=== PATIENT | female | born 1950 | race Caucasian/White ===

== ENCOUNTER 2016-06-17 18:51 | Emergency (ER) ==
[2016-06-17 18:57] VITALS: BP 125/86; TEMP 98.8; BMI 34.0
[2016-06-17 19:34] LABS: FLU INTERNAL QC INTERNAL QC VALID; RAPID FLU A NEGATIVE (NEGATIVE); RAPID FLU B NEGATIVE (NEGATIVE)
[2016-06-17] MEDS ORDERED: LIDOCAINE 1 % AMP 5 ML (SUTURES) IM STA (19:40)
[2016-06-17] MEDS ORDERED: ROCEPHIN IM STA (19:40)
[2016-06-17] MEDS ORDERED: DECADRON 4 MG/ML SDV IM STA (19:40)
--- NOTE | 2016-06-17 19:43 | ED.PDOC ---
General ED Provider: Dr. KRIS CARDENAS-ER Chief Complaint: Cough Stated Complaint: im coughing and running a fever Time Seen by Physician: 18:55 Mode of Arrival: Walk-In Information Source: Patient Exam Limitations: No limitations Nursing and Triage Documentation Reviewed and Agree: Yes Respiratory Complaint Exam - Respiratory Complaint/Exam Onset/Duration: 2 days Symptoms Are: Still present Timing: Intermittent Initial Severity: Mild Current Severity: Mild Location: Chest Character: Reports: Productive cough Aggravating: Reports: URI Alleviating: Reports: None Associated Signs and Symptoms: Reports: Fever, URI, Nasal congestion. Denies: Rapid breathing, Dyspnea, Chills, Chest pain, Pleuritic chest pain, Wheezing, Hemoptysis, Dizziness, Calf pain, Calf swelling, Edema, Hoarseness, Sinus discomfort, Vomiting, Sore throat, Weight loss, Decreased oral intake, Increased thirst, Increased appetite, Increased urination Related History: Reports: Similar episode History of Healthcare-Acquired Pneumonia: No Related Surgical History: Reports: None Pulmonary Embolism Risk Factors: None Cardiac Risk Factors: Reports: None Pseudomonas Risk Factors: Reports: None Tuberculosis Risk Factors: Reports: None Status Asthmaticus Risk Factors: Reports: None Home Oxygen Use: No Recent Stress Test: No Recent Echo/LV Function: No Current Antibiotic Use: No Current Asthma Medication Use: No Respiratory Distress: None Inadequate Respiratory Effort: No Dysphagia Present: No Stridor Present: No JVD Present: No Accessory Muscle Use: No Retractions: Not Present Diminished Breath Sounds: No Sinus Tenderness: None Grunting Respirations: No Kussmaul Respirations: No Differential Diagnoses: Bronchitis, Influenza Review of Systems - Review Of Systems Constitutional: Reports: Fever Eyes: Reports: No symptoms Ears, Nose, Mouth, Throat: Reports: No symptoms Respiratory: Reports: Cough Cardiac: Reports: No symptoms GI: Reports: No symptoms : Reports: No symptoms Musculoskeletal: Reports: No symptoms Skin: Reports: No symptoms Neurological: Reports: No symptoms Endocrine: Reports: No symptoms Hematologic/Lymphatic: Reports: No symptoms All Other Systems: Reviewed and Negative Past Medical History - Past Medical History Endocrine: Reports: Unknown Cardiovascular: Reports: Unknown Respiratory: Reports: Unknown Hematological: Reports: Unknown Gastrointestinal: Reports: Unknown Genitourinary: Reports: Unknown Neuro/Psych: Reports: Unknown Musculoskeletal: Reports: Unknown Cancer: Reports: Unknown Last Menstrual Period: menopause - Surgical History General Surgical History: Reports: Unknown - Family History Family History: Reports: Unknown - Social History Smoking Status: Former smoker Hx Substance Use: No Alcohol Screening: Occasionally Lives: With family Physical Exam - Physical Exam Appearance: Well-appearing, No pain distress, Well-nourished Eyes: JADE, EOMI, Conjunctiva clear ENT: Ears normal, Nose normal, Oropharynx normal Neck: Supple Respiratory: Rhonchi Cardiovascular: RRR, Pulses normal, No rub, No murmur GI/: Soft, Nontender, No masses, Bowel sounds normal, No Organomegaly Musculoskeletal: Normal strength, ROM intact, No edema, No calf tenderness Skin: Warm, Dry, Normal color Neurological: Sensation intact, Motor intact, Reflexes intact, Cranial nerves intact, Alert, Oriented Psychiatric: Affect appropriate, Mood appropriate Critical Care Note - Critical Care Note Total Time (mins): 0 Course - Course Orders, Labs, Meds: Lab Review 06/17/16 19:15 Influenza A (Rapid) Negative Influenza B (Rapid) Negative Orders Category Date Time Status FLU A & B RAPID TEST [RAPID FLU A/B] Stat LAB 06/17/16 19:15 Completed Ceftriaxone Sodium [Rocephin] MEDS 06/17/16 19:40 Discontinued 1 gm IM ONCE STA Dexamethasone 4 mg/ml Inj [Decadron 4 mg/ml Sdv] MEDS 06/17/16 19:40 Discontinued 4 mg IM ONCE STA Lidocaine HCl/Pf [Lidocaine 1 % Amp 5 ml (Sutures)] MEDS 06/17/16 19:40 Discontinued 2.1 ml IM ONCE STA Medications Discontinued Medications Generic Name Dose Route Start Last Admin Trade Name Freq PRN Reason Stop Dose Admin Ceftriaxone Sodium 1 gm 06/17/16 19:40 Rocephin IM 06/17/16 19:41 ONCE STA Dexamethasone Sodium Phosphate 4 mg 06/17/16 19:40 Decadron 4 Mg/Ml Sdv IM 06/17/16 19:41 ONCE STA Lidocaine HCl 2.1 ml 06/17/16 19:40 Lidocaine 1 % Amp 5 Ml (Sutures) IM 06/17/16 19:41 ONCE STA Vital Signs: Temp Pulse Resp BP Pulse Ox 06/17/16 18:51 98.8 F 100 H 20 125/86 95 Departure - Departure Time of Disposition: 19:44 Disposition: HOME SELF-CARE Discharge Problem: Bronchitis Instructions: Acute Bronchitis (ED) Condition: Good Pt referred to PMD for follow-up: Yes Additional Instructions: levaquin 500mg q daily #7---tessalon perles 200mg tid prn cough 30--rest--- recheck in 48hrs ifnot better Allergies/Adverse Reactions: Allergies Sulfa (Sulfonamide Antibiotics) Adverse Reaction (Verified 06/17/16 18:59) Home Medications: Ambulatory Orders Duloxetine HCl [Cymbalta] 90 mg PO DAILY 06/17/16 Levothyroxine Sodium [Synthroid] 100 mcg PO QDAC 06/17/16 Naproxen 500 mg PO BID 06/17/16 Paroxetine HCl [Paxil] 10 mg PO DAILY 06/17/16 Disposition Discussed With: Patient
== END 2016-06-17 20:20 | disposition home or self-care (01) ==
LOC: ED 18:51
DX: J20.9 Acute bronchitis, unspecified (principal)
CPT/HCPCS: 87804; 96372; 99283